=== PATIENT | male | born 1955 | race African-American/Black ===

== ENCOUNTER 2020-04-01 10:07 | Outpatient (CLI) | payer OTHER, SELFPAY ==
--- NOTE | ~2020-04-01 | XR_ITS ---
XR knee RT 3V DATE: 04/01/2020 10:26 INDICATION: Right knee effusion, pain TECHNIQUE: 3 views COMPARISON: None FINDINGS: Moderate suprapatellar knee joint effusion is suggested. No fracture or dislocation, periosteal reaction or bone destruction is detected. Knee joint spaces ar e preserved. No radiopaque intra-articular loose body or chondral calcinosis. There is enthesopathy of the lower pole of the patella and anterior tibial tuberosity at the patellar tendon insertion sites IMPRESSION: Suggestion of moderate knee joint effusion Reviewed, dictated and finalized at location A.
== END 2020-04-01 10:08 | disposition home or self-care (01) ==
PROVIDERS: PCP Internal Medicine; Visit Provider Physician Assistant
DX: M25.461 Effusion, right knee (principal)
CPT/HCPCS: 73562

== ENCOUNTER → 2020-12-04 03:31 | Outpatient (CLI) | payer OTHER, SELFPAY ==
[2020-12-04 19:50] LABS: SARS-CoV-2 RNA PCR Negative
== END ==
PROVIDERS: PCP Internal Medicine; Visit Provider Internal Medicine Gastroenterology
DX: Z01.812 Encounter for preprocedural laboratory examination (principal); Z20.822 Contact with and (suspected) exposure to COVID-19
CPT/HCPCS: C9803; U0003; U0005

== ENCOUNTER 2020-12-07 00:41 | Day surgery (SDC) | payer OTHER, SELFPAY ==
[2020-12-01 08:13] VITALS: BMI 23.2
--- NOTE | 2020-12-07 08:27 | WPDANESEPPF ---
Anes - Initial Pre Proc Eval Procedure: Operation Date: 12/07/20 09:30 Proposed Procedures p Screening Colonoscopy - Aguilar Pretty MD Date/Time: 12/07/20 08:27 Surgeon: Aguilar Pretty MD Pre Op Diagnosis: hx of colon polyps, neoplasm screening Patient Data Age: 65 Gender: M Height: 1.88 m Weight: 82 kg Allergies Allergy/AdvReac Type Severity Reaction Status Date / Time No Known Allergies Allergy Verified 12/07/20 08:35 Home Medications Medication Instructions Recorded Confirmed Type garlic 1,000 mg capsule 1,000 mg PO DAILY 07/02/19 12/01/20 History ginkgo biloba 500 mg capsule 500 mg PO DAILY 07/02/19 12/01/20 History naproxen sodium 220 mg tablet 220 mg PO BID PRN 07/02/19 12/07/20 History sildenafil 100 mg tablet 100 mg PO DAILY PRN #36 tablet 08/14/19 12/07/20 Rx Patient hx anesthesia problems: none Family hx anesthesia problems: none PMFSH Surgical History Surgical History History of appendectomy Family History Family History Father Malignant neoplasm of prostate Mother No problems noted. Sibling Hypertension Sibling Hypertension Social History Social History Smoking packs per day: 0.5 Smoking cigarettes per day: 10.0 Years smoked: 10 Smoking pack-years: 5.00 Smoking status: Former smoker Tobacco type: cigarettes Alcohol intake: never Substance use: never Substance use type: does not use Living arrangements: with family Spiritual care concerns: No Anes - Eval Final PreProcedure Day of Procedure 12/07/20 08:27 Patient weight: normal Heart: regular rate and rhythm Lungs: clear to auscultation and normal air movement Airway: Mallampati scale class II Neurological: alert and oriented Last oral intake: >/= 8 hours ASA classification: II Emergent: no Anesthetic plan: proceed Anesthesia type and monitoring: general GIVS and standard monitoring Informed Consent: The patient's anesthetic plan and its attendant risks and benefits were discussed with the patient/family/POA. Questions were solicited and answers provided to the satisfaction of the patient/family/POA.
[2020-12-07 08:37] VITALS: BP 120/75; PULSE 88; RESP 16; TEMP 36.5; O2SAT 100; BMI 22.4
--- NOTE | 2020-12-07 08:46 | PM.HPGS ---
History of Present Illness History of Present Illness Consent: Risks, benefits, and alternatives have been discussed and questions answered. Patient agrees to proceed with procedure. Chief complaint: hx of colon polyps, neoplasm screening Narrative: Herrera Washburn Jr. is a 65 year old male here for colon cancer screening. He has a history of polyps Review of Systems Review of Systems: All systems reviewed & are unremarkable except as noted in HPI and below PMFSH Surgical History Surgical History History of appendectomy Family History Family History Father Malignant neoplasm of prostate Mother No problems noted. Sibling Hypertension Sibling Hypertension Social History Social History Smoking packs per day: 0.5 Smoking cigarettes per day: 10.0 Years smoked: 10 Smoking pack-years: 5.00 Smoking status: Former smoker Tobacco type: cigarettes Alcohol intake: never Substance use: never Substance use type: does not use Living arrangements: with family Spiritual care concerns: No Meds Home Medications and Allergies Home Medications Medication Instructions Recorded Confirmed Type garlic 1,000 mg capsule 1,000 mg PO DAILY 07/02/19 12/01/20 History ginkgo biloba 500 mg capsule 500 mg PO DAILY 07/02/19 12/01/20 History naproxen sodium 220 mg tablet 220 mg PO BID PRN 07/02/19 12/07/20 History sildenafil 100 mg tablet 100 mg PO DAILY PRN #36 tablet 08/14/19 12/07/20 Rx Allergies Allergy/AdvReac Type Severity Reaction Status Date / Time No Known Allergies Allergy Verified 12/07/20 08:35 Vital Signs Vital Signs - 24 hr 12/07/20 08:37 Temperature 36.5 C Pulse Rate 88 Respiratory Rate 16 Blood Pressure 120/75 Pulse Oximetry 100 Exam Resp: Auscultation: clear to auscultation bilaterally Cardio: Rate: regular rate Rhythm: regular rhythm GI: GI Palp: Yes Soft to palpation and No Tenderness to palpation present (GI) Assessment and Plan Assessment and plan (1) Colon cancer screening: Code(s): Z12.11 - Encounter for screening for malignant neoplasm of colon Status: Acute Assessment and Plan: Colonoscopy with possible biopsy or polypectomy or cautery or injection of substances.
[2020-12-07] MEDS: LACTATED RINGERS 1,000 ML 150 ML IV CONT (09:09)
[2020-12-07] MEDS: SIMETHICONE ORAL SUSPENSION 20 MG/0.3 ML 30 ML BOTTLE 0.6 ML IRRIGATION (09:41)
[2020-12-07 09:50] VITALS: BP 92/64; PULSE 84; RESP 18; O2SAT 100
[2020-12-07 10:00] VITALS: BP 95/69; PULSE 73; RESP 17; O2SAT 100
[2020-12-07 10:10] VITALS: BP 112/71; PULSE 68; RESP 17; O2SAT 100
== END 2020-12-07 11:12 | disposition home or self-care (01) ==
PROVIDERS: PCP Internal Medicine; Visit Provider Internal Medicine Gastroenterology
PROC: 0DJD8ZZ Inspection of Lower Intestinal Tract, Via Natural or Artificial Opening Endoscopic (ICD-10-PCS; CPT 45378; principal; 2020-12-07 09:30)
DX: Z12.11 Encounter for screening for malignant neoplasm of colon (principal); D12.0 Benign neoplasm of cecum; Z87.891 Personal history of nicotine dependence
CPT/HCPCS: 45385; 88305; J2704; J7120

== ENCOUNTER 2022-08-18 13:36 | Outpatient (CLI) | payer MEDICARE, SELFPAY ==
--- NOTE | ~2022-08-18 | CT_ITS ---
Non-contrast Head CT History: Dementia, tremor Technique: Axial non-contrast imaging of the brain was performed. Dose reduction technique was used on this scan by utilizing automated exposure control and iterative reconstruction technique. The dose -length product (DLP) was 681.00 mGy-cm. Findings: There is no evidence of intracranial hemorrhage, mass lesion, or acute infarct. Brain par enchyma appears normal. The ventricles and subarachnoid spaces are normal in size. The calvarium ap pears normal. The visualized paranasal sinuses and mastoid air cells are clear. Impression: No significant abnormality seen. Reviewed, dictated and finalized at location . ING ALLEY MANAGER Impression: No significant abnormality seen.
== END 2022-08-18 13:37 | disposition home or self-care (01) ==
PROVIDERS: PCP Internal Medicine; Visit Provider Internal Medicine
DX: F03.90 Unspecified dementia, unspecified severity, without behavioral disturbance, psychotic disturbance, mood disturbance, and anxiety (principal); R25.1 Tremor, unspecified
CPT/HCPCS: 70450

== ENCOUNTER 2023-05-24 09:36 | Outpatient (CLI) | payer MEDICARE, SELFPAY ==
--- NOTE | ~2023-05-24 | XR_ITS ---
EXAMINATION: XR chest 2V 05/24/2023 09:54 INDICATION: Cough PROCEDURE: 2 view chest COMPARISON: No prior studies for comparison. FINDINGS: The lungs are clear. The cardiomediastinal silhouette is within normal limits. There are no pleural effusions. There is no pneumothorax suspected. IMPRESSION: 1: NO ACUTE CARDIOPULMONARY DISEASE. Reviewed, dictated and finalized at location B. D CUSTOM PROTECTION OFFICER
== END 2023-05-24 09:37 | disposition home or self-care (01) ==
LOC: ANHIMG 09:39
PROVIDERS: PCP Internal Medicine; Visit Provider Physician Assistant
DX: R05.9 Cough, unspecified (principal)
CPT/HCPCS: 71046

== ENCOUNTER → 2023-07-19 09:28 | Outpatient (CLI) | payer MEDICARE, SELFPAY ==
--- NOTE | ~2023-07-19 | MR_ITS ---
MRI of the left hip Clinical history: Trochanteric bursitis Technique: Coronal T1-weighted, T2-weighted, and proton-density fat-sat images, and axial T1-weighted and proton-density fat-sat images were acquired through the pelvis. Coronal T2-weighted images and c oronal, axial, and sagittal proton-density fat-sat images were acquired through the left hip. Findings: There is no fracture or avascular necrosis. Bone marrow signals in the proximal femora and visualized pelvic bones are unremarkable. No high-grade chondral defect in the left hip joint seen. L eft hip joint space is preserved. No left hip joint effusion. There is probable degenerative tearing of the left anterior acetabular labrum. This may extend to the anterosuperior zone. Visualized musculature about the pelvis and left hip is unremarkable. No muscle atrophy or edema. Vis ualized tendons are intact. No evidence for bursitis. No mass lesion or fluid collection seen. IMPRESSION: Probable tearing of the anterior and anterosuperior portions of the left acetabular labrum. Reviewed, dictated and finalized at location M. GER RESORT IMPRESSION: Probable tearing of the anterior and anterosuperior portions of the left acetab ular labrum.
== END ==
PROVIDERS: PCP Internal Medicine; Visit Provider Orthopaedic Surgery
DX: M70.62 Trochanteric bursitis, left hip (principal)
CPT/HCPCS: 73721

== ENCOUNTER 2023-07-31 07:57 | Outpatient (CLI) | payer MEDICARE, SELFPAY ==
--- NOTE | ~2023-07-31 | XR_ITS ---
EXAMINATION: XR lg joint inject/asp w image DATE: 07/31/2023 09:12 INDICATION: Other articular cartilage disorders of the left hip with left hip pain TECHNIQUE: A time-out was performed to verify the patient's name, date of , and procedure to b e performed. The procedure including the risks, benefits, and alternatives was discussed with the pat ient. Risks discussed included bleeding and infection. The patient understood the risks and agreed to proceed. The skin overlying the left hip joint was prepped and draped in usual sterile fashion. An esthetic was administered with 1% lidocaine subcutaneously. A 22 G needle was advanced under fluoros copic guidance into the joint. Injection of 1 mL of Omnipaque 240 confirmed intra-articular position of the needle. Subsequently, injectate consisting of 5 mL of a 4:1 mixture of 0.5% lidocaine: 80 mg /mL Depo-Medrol for a total dosage of 80 mg Depo-Medrol was instilled. Washout of contrast was seen c onfirming intra-articular administration. The needle was removed and the entry site was cleaned and d ressed. There were no immediate complications. Fluoroscopy exposure time was 0.1 minutes. The total number of images was 2. FINDINGS: Real-time fluoroscopy demonstrates the needle in the left hip joint. Patient's pain prior t o procedure:01/02. Patient's pain following the procedure: 11/02. IMPRESSION: 1. Left hip joint injection of local anesthetic and steroid with decrease in the patient's presenting pain. Reviewed, dictated and finalized at location A. OR CONTROL SYSTEMS ENGINEER IMPRESSION: 1. Left hip joint injection of local anesthetic and steroid with decrease in th e patient's presenting pain.
== END 2023-07-31 07:58 | disposition home or self-care (01) ==
PROVIDERS: PCP Internal Medicine; Visit Provider Orthopaedic Surgery
DX: M24.152 Other articular cartilage disorders, left hip (principal)
CPT/HCPCS: 20610; 77002; J1040

== ENCOUNTER 2024-07-04 10:12 | Outpatient (CLI) | payer MEDICARE, SELFPAY ==
--- NOTE | ~2024-07-04 | XR_ITS ---
HISTORY: M25.519 - Pain in unspecified shoulder NON INJ PERSISTENT COMPARISON: None TECHNIQUE: 3 views of the right shoulder were performed FINDINGS: No acute fracture. The glenohumeral joint space is maintained. Degenerative disease is identified within the acromioclavicular joint space, with osteophyte formatio n and trace joint space narrowing. The visualized portion of the adjacent right lung is clear. The humeral head is well seated within the glenoid fossa. IMPRESSION: Degenerative disease, without acute fracture or anterior dislocation. Reviewed, dictated and finalized at location A. LICTS ANALYST
== END 2024-07-04 10:13 | disposition home or self-care (01) ==
PROVIDERS: PCP Internal Medicine; Visit Provider Internal Medicine
DX: M19.011 Primary osteoarthritis, right shoulder (principal)
CPT/HCPCS: 73030